=== PATIENT | female | born 1930 | race Caucasian/White ===

== ENCOUNTER 2019-02-01 11:41 | Observation (INO) ==
[2019-02-01] MEDS ORDERED: BENADRYL PO ONE (13:30)
[2019-02-01] MEDS ORDERED: TYLENOL PO ONE (13:30)
[2019-02-01] MEDS ORDERED: GAMUNEX C IV ONE (14:00)
[2019-02-01] MEDS ORDERED: DILUENT IV ONE (14:00)
[2019-02-01] MEDS ORDERED: COZAAR PO SCH (21:00)
[2019-02-01] MEDS: LOPRESSOR PO SCH (21:28)
[2019-02-02 01:47] LABS: URINE SOURCE CLEAN CATCH
[2019-02-02 01:55] LABS: BILIRUBIN URINE NEGATIVE (NEGATIVE); BLOOD URINE NEGATIVE (NEGATIVE); COLOR STRAW; GLUCOSE URINE NEGATIVE (NEGATIVE); KETONE URINE NEGATIVE (NEGATIVE); LEUKOCYTES URINE NEGATIVE (NEGATIVE); NITRITE URINE NEGATIVE (NEGATIVE); PROTEIN URINE NEGATIVE (NEGATIVE); SP GRAVITY URINE 1.009; TURBIDITY URINE CLEAR (CLEAR); UROBILINOGEN URINE NORMAL (NORMAL)
[2019-02-02 01:56] LABS: UR EPITHELIAL CELLS <10 /HPF (<10); URINE BACTERIA NEGATIVE /HPF; URINE RBC <10 /HPF (<10); URINE WBC <10 /HPF (<10)
[2019-02-02 06:52] LABS: BASO# 0.01 X1000 (0.0-0.2); BASO% 0.1 % (0.0-0.8); HEMATOCRIT 31.6 % (37.0-47.0); HEMOGLOBIN 10.6 g/dL (12.0-16.0); IMM GRAN# 0.04 X1000 (0.0-0.04); IMM GRAN% 0.6 % (0.0-0.5); LYMPH# 1.08 X1000 (1.2-3.4); LYMPH% 14.9 % (20.5-51.1); MCH 30.4 PG (27-31); MCHC 33.5 g/dL (33-37); MCV 90.5 FL (81-99); MONO# 0.73 X1000 (0.11-0.59); MONO% 10.1 % (1.7-9.3); MPV 12.9 FL (7.4-10.4); NEUT# 5.37 X1000 (1.4-6.5); NEUT% 74.3 % (42.2-75.2); PLT 31 X1000 (130-400); RBC 3.49 XMIL (4.2-5.4); RDW 13.9 % (11.5-14.5); WBC 7.23 X1000 (4.8-10.8)
[2019-02-02 07:47] LABS: PLT 25 X1000 (130-400)
[2019-02-02] MEDS: LOPRESSOR PO SCH (08:41)
[2019-02-02 08:47] VITALS: BP 148/57
[2019-02-02] MEDS ORDERED: PRILOSEC PO SCH (09:00)
[2019-02-02] MEDS ORDERED: FOLTX PO SCH (09:00)
[2019-02-02] MEDS ORDERED: AMARYL PO SCH (09:00)
[2019-02-02] MEDS ORDERED: ADALAT CC PO SCH (09:00)
[2019-02-02] MEDS ORDERED: SYNTHROID PO SCH (09:00)
[2019-02-02] MEDS ORDERED: EVISTA PO SCH (09:00)
[2019-02-02 11:14] LABS: BASO# 0.01 X1000 (0.0-0.2); BASO% 0.1 % (0.0-0.8); EOS# 0.01 X1000 (0.0-0.7); EOS% 0.1 % (0.0-10.0); HEMATOCRIT 32.5 % (37.0-47.0); HEMOGLOBIN 10.7 g/dL (12.0-16.0); IMM GRAN# 0.03 X1000 (0.0-0.04); IMM GRAN% 0.4 % (0.0-0.5); LYMPH# 1.88 X1000 (1.2-3.4); LYMPH% 22.1 % (20.5-51.1); MCH 30.1 PG (27-31); MCHC 32.9 g/dL (33-37); MCV 91.3 FL (81-99); MONO# 0.75 X1000 (0.11-0.59); MONO% 8.8 % (1.7-9.3); NEUT# 5.81 X1000 (1.4-6.5); NEUT% 68.5 % (42.2-75.2); PLT 20 X1000 (130-400); RBC 3.56 XMIL (4.2-5.4); WBC 8.49 X1000 (4.8-10.8)
== END 2019-02-02 14:15 | disposition home or self-care (01) ==
LOC: DIRADM → 3N 11:41
PROVIDERS: ADMIT Internal Medicine Hematology & Oncology; ATTEND Internal Medicine Hematology & Oncology

== ENCOUNTER 2019-02-05 10:05 | Observation (INO) ==
[2019-02-05] MEDS ORDERED: BENADRYL PO ONE ×2 (11:00→16:00)
[2019-02-05] MEDS ORDERED: TYLENOL PO ONE ×2 (11:00→16:00)
[2019-02-05] MEDS: GAMUNEX C IV ONE ×2 (15:53→15:54)
[2019-02-05] MEDS: DILUENT IV ONE ×2 (15:53→15:54)
[2019-02-05 18:27] LABS: INR 2.02; PROTIME 23.3 Seconds (11.0-16.0)
[2019-02-05] MEDS ORDERED: COUMADIN PO SCH (21:00)
[2019-02-05] MEDS ORDERED: COZAAR PO SCH (21:00)
[2019-02-05] MEDS: LOPRESSOR PO SCH (22:10)
[2019-02-06 02:18] LABS: URINE SOURCE CLEAN CATCH
[2019-02-06 02:25] LABS: BILIRUBIN URINE NEGATIVE (NEGATIVE); BLOOD URINE NEGATIVE (NEGATIVE); COLOR STRAW; GLUCOSE URINE NEGATIVE (NEGATIVE); KETONE URINE NEGATIVE (NEGATIVE); LEUKOCYTES URINE NEGATIVE (NEGATIVE); NITRITE URINE NEGATIVE (NEGATIVE); PROTEIN URINE NEGATIVE (NEGATIVE); SP GRAVITY URINE 1.013; TURBIDITY URINE CLEAR (CLEAR); UROBILINOGEN URINE NORMAL (NORMAL)
[2019-02-06 02:27] LABS: UR EPITHELIAL CELLS <10 /HPF (<10); URINE BACTERIA NEGATIVE /HPF; URINE RBC <10 /HPF (<10); URINE WBC <10 /HPF (<10)
[2019-02-06 08:18] VITALS: BP 149/56
[2019-02-06] MEDS ORDERED: SYNTHROID PO SCH (09:00)
[2019-02-06] MEDS ORDERED: PREVACID SOLUTAB PO SCH (09:00)
[2019-02-06] MEDS ORDERED: VICON-C PO SCH (09:00)
[2019-02-06] MEDS ORDERED: EVISTA PO SCH (09:00)
[2019-02-06] MEDS ORDERED: AMARYL PO SCH (09:00)
[2019-02-06] MEDS ORDERED: ADALAT CC PO SCH (09:00)
[2019-02-06] MEDS: LOPRESSOR PO SCH (09:40)
[2019-02-06 11:10] LABS: BASO# 0.01 X1000 (0.0-0.2); BASO% 0.1 % (0.0-0.8); EOS# 0.49 X1000 (0.0-0.7); EOS% 4.3 % (0.0-10.0); HEMATOCRIT 35.1 % (37.0-47.0); HEMOGLOBIN 11.7 g/dL (12.0-16.0); IMM GRAN# 0.12 X1000 (0.0-0.04); LYMPH# 2.45 X1000 (1.2-3.4); LYMPH% 21.3 % (20.5-51.1); MCH 30.5 PG (27-31); MCHC 33.3 g/dL (33-37); MCV 91.4 FL (81-99); MONO# 0.83 X1000 (0.11-0.59); MONO% 7.2 % (1.7-9.3); NEUT% 66.1 % (42.2-75.2); PLT 9 X1000 (130-400); RBC 3.84 XMIL (4.2-5.4); RDW 14.7 % (11.5-14.5)
[2019-02-06 12:19] LABS: BANDS 2 % (0-1); EOS 1 % (1-10); LYMPHS 22 % (21-51); MONO 5 % (1-9); SEGS 70 % (42-75)
[2019-02-06 12:25] LABS: LARGE PLATELETS 1+
== END 2019-02-06 13:20 | disposition home health service (06) ==
LOC: INF 10:05 → EDIPHOLD 10:05 → 1N 13:22
PROVIDERS: ADMIT Internal Medicine Hematology & Oncology; ATTEND Internal Medicine Hematology & Oncology

== ENCOUNTER 2019-02-17 00:18 | Observation (INO) ==
--- NOTE | 2019-02-17 01:15 | PROVIDER DOCUMENTATION ---
HPI-General Adult - General Chief Complaint: Extremity Pain Stated Complaint: RIGHT HIP PAIN Time Seen by Provider: 02/17/19 00:40 Source: patient, family Allergies/Adverse Reactions: Patient Allergies Allergy/AdvReac Type Severity Reaction Status Date / Time tetanus and diphtheria Allergy rash, site Verified 03/09/18 11:27 toxoids swelling, redness Home Medications: Home Medication List Medication Instructions Recorded Confirmed Last Taken Type Glimepiride 1 mg PO QAM 01/08/16 02/05/19 02/05/19 07:00 History Lansoprazole 30 mg PO QAM 01/08/16 02/05/19 02/05/19 07:00 History Levothyroxine [Synthroid] 125 microgm PO QAM 01/08/16 02/05/19 02/05/19 07:00 History Losartan Potassium 100 mg PO QHS 01/08/16 02/05/19 02/05/19 07:00 History Metoprolol Tartrate 100 mg PO BID 01/08/16 02/05/19 02/05/19 07:00 History Raloxifene [Evista] 60 mg PO QAM 01/08/16 02/05/19 02/05/19 07:00 History Nifedical Xl 30 mg PO QAM 04/05/16 02/05/19 02/05/19 07:00 History Warfarin Sodium 7 mg PO QPM 04/05/16 02/05/19 02/04/19 19:00 History Cyanocobalamin/Folic AC/Vit B6 1 mg PO DAILY 02/01/19 02/05/19 02/05/19 07:00 History [Folbee Tablet] - History of Present Illness -Gen Adult Nature of Presenting Problems: 89 YO F pmh for DM, recurrent DVT on coumadin who lives alone with c/o fall today while trying to get in bed. Pt state she had weakness in her right leg while trying to swing it onto the bed, she then lost her balance and fell, landing on her right hip. She denies hitting her head, LOC. She has generalized pain in LE b/l. She denies fever, abdominal pain, head pain, neck pain, n/v. Location of Pain/Injury: reports: pelvis (right hip), lower extremity (b/l) Pain Radiation: reports: no radiation Quality of Pain: reports: aching, fullness, throbbing Timing: reports: still present Context/Activities at Onset: reports: light activity Modifying Factors: improves with: nothing Associated Symptoms: reports: weakness, trouble walking. denies: back/neck pain, chest pain, dizziness, fatigue, fever/chills, shortness of breath, syncope, vomiting Similar Symptoms Previously?: No Recently seen or treated by another doctor?: No - Diabetes Related Context Context: denies: change in mental status Review of Systems - Adult - REVIEW OF SYSTEMS - ADULT Constitutional: denies: chills, fever Eyes: reports: no symptoms reported Ears, Nose, Mouth & Throat: reports: no symptoms reported Cardiovascular: reports: edema. denies: chest pain, palpitations, syncope Respiratory: denies: cough, shortness of breath, wheezing Gastrointestinal: denies: abdominal pain, nausea, poor appetite, vomiting Musculoskeletal: reports: see HPI Integumentary: reports: other (easy bruising) Neurological: reports: numbness. denies: dizziness/vertigo, headache/migraines, syncope Past History - Adult - PAST MEDICAL HISTORY-ADULT Review of Records: reports: Old Records Reviewed, Nursing Assessment Review, Medications Reviewed, Social history reviewed & non-contributory. Major Childhood Illnesses: reports: denies history Cardiovascular: reports: HTN Respiratory: reports: denies history Gastrointestinal: reports: GERD Obstetrical/Gynecological: reports: denies history Genitourinary: reports: denies history Musculoskeletal: reports: denies history Neurological: reports: other (neuropathy) Endocrine/Immune: reports: Diabetes, thyroid disorder Other Conditions: reports: denies history - PRIOR SURGERIES/PROCEDURES Surgical/Procedure History: reports: tonsillectomy, joint replacement (total hip replacement), breast (bx), other (thyroidectomy/ D&C) - IMMUNIZATION STATUS Childhood Immunizations: See Nurse Assessment Flu Vaccine: See Nurse Assessment - FAMILY HISTORY Family History: reviewed, not pertinent - SOCIAL HISTORY Smoking: denies Substance Use: denies Living Situation: alone Physical Exam-General - PHYSICAL EXAM-ADULT Initial Vital Signs Reviewed: Yes - CONSTITUTIONAL General Appearance: mild distress (from pain) - EYES Eyes: PERRL/EOMI, pink conjunctivae - HEAD, EARS, NOSE, MOUTH & THROAT HENMT: normocephalic/atraumatic, moist mucous membranes - NECK Neck: non-tender, full range of motion, supple, normal inspection - RESPIRATORY Respiratory: chest non-tender, lungs clear, normal breath sounds, no respiratory distress - CARDIOVASCULAR Cardiovascular: normal peripheral pulses, regular rate, rhythm. negative: no edema - GASTROINTESTINAL (ABDOMEN) Abdominal Exam: normal bowel sounds, non tender - MUSCULOSKELETAL Back Exam: normal inspection, no CVA tenderness Extremity: pedal edema, other (pain with tenderness to palpation of LE b/l, discoloration of RLE, +2 edema, good peripheral perfusion) - SKIN Integumentary: ecchymosis. negative: normal color - NEUROLOGIC Neurologic: grossly normal, other (pt not wanting to move right LE 2/2 to pain, but able to move it, no motor deficits or focal weakness, no pronator drift) - PSYCHIATRIC Psych/Mental Status: normal mood/affect, normal thought content, normal thought process Progress - PLAN OF CARE/RESULTS Progress/Plan/Lab Results: Vital Signs - 8 hr 02/17/19 00:40 Pulse Rate 56 L Respiratory Rate 20 Blood Pressure 128/54 O2 Sat by Pulse Oximetry 98 Orders Category Date Time Status CT HEAD W/O CONTRAST [CT] Stat Exams 02/17/19 00:[address] HEAD/C-SPINE W/O CONTRAST [CT] Stat Exams 02/17/19 00:[address] PELVIS W/WO CONTRAST [CT] Stat Exams 02/17/19 00:57 Ordered CBC WITH ELECTRONIC DIFF [HEME] Stat Lab 02/17/19 00:57 Uncollected COMPREHENSIVE METABOLIC PANEL [CHEM] Stat Lab 02/17/19 00:57 Uncollected PROTIME WITH INR [COAG] Stat Lab 02/17/19 00:57 Ordered PTT [COAG] Stat Lab 02/17/19 00:57 Ordered pro-bnp [PRO B-NATRIURETIC PEPTIDE] Stat Lab 02/17/19 00:59 Uncollected Patient signed out to me from Dr Barlow pending CT scan. CT showing nothing acute. Upon evaluating patient she states that she has been uanble to ambulate well. She has been falling frequently at home. Daughters state that they have been trying to get her into rehab but they told them they are unable to get her placed outpatient. I spoke to Dr Yoder, cotton stomper for hospitalist and explained their situation and concerns. He accepted patient for admission. Further orders to be placed by their team. Result Diagrams: 02/17/19 01:28 09/01/19 01:28 - CHANGE OF SHIFT REPORT (ED Provider) 1 Report Given and Care Transferred to:: Transfered to Dr. Howard Time of Transfer: 02:53 Items Pending: CT/MRI Results Departure - Departure Date of Disposition Decision: 02/17/19 Time of Disposition Decision: 03:55 DIAGNOSIS: Thrombocytopenia, Edema, Lower extremity pain, Right hip pain, Unable to ambulate, Frequent falls Disposition: ADMITTED INPATIENT 09 Certified Medical Emergency: Emergent Condition: Stable Referrals and Follow-Ups: Geovani Longoria [Primary Care Provider] - - Critical Care Note This patient required my direct & personal management of CC.: No Attestation - Physician/ LES Attestation The physician spent face to face time with patient:: Yes Advanced Practice Provider documentation review:: Supervising physician onsite and consulted in the evaluation and care of this patient. The physician did have a face to face encounter with the patient.
[2019-02-17 01:56] LABS: HEMATOCRIT 35.2 % (37.0-47.0); IMM GRAN# 0.07 X1000 (0.0-0.04); IMM GRAN% 0.8 % (0.0-0.5); LYMPH# 0.24 X1000 (1.2-3.4); LYMPH% 2.7 % (20.5-51.1); MCH 30.5 PG (27-31); MCHC 34.1 g/dL (33-37); MCV 89.3 FL (81-99); MONO# 0.42 X1000 (0.11-0.59); MONO% 4.7 % (1.7-9.3); MPV 13.7 FL (7.4-10.4); NEUT# 8.15 X1000 (1.4-6.5); NEUT% 91.8 % (42.2-75.2); PLT 40 X1000 (130-400); RBC 3.94 XMIL (4.2-5.4); RDW 14.8 % (11.5-14.5); WBC 8.88 X1000 (4.8-10.8)
[2019-02-17 02:03] LABS: INR 2.6; PROTIME 28.5 Seconds (11.0-16.0)
[2019-02-17 02:04] LABS: PTT 31.2 Seconds (22.3-41.8)
[2019-02-17 02:14] LABS: AGAP 13; ALB/GLOB RATIO 1.1; ALBUMIN 3.4 g/dL (3.5-5.0); ALKALINE PHOSPHATASE 58 U/L (32-104); BUN 44 mg/dL (8-22); CALCIUM 8.6 mg/dL (8.8-10.2); CHLORIDE 98 mmol/L (98-107); COSMO 286; CREATININE 0.6 mg/dL (0.5-0.9); ESTIMATED GFR > 60; GLUCOSE 248 mg/dL (70-104); GOT 26 U/L (10-30); GPT 27 U/L (10-36); POTASSIUM 4.7 mmol/L (3.5-5.1); SODIUM 133 mmol/L (136-145); TCO2 22 mmol/L (25-35); TOTAL BILIRUBIN 0.41 mg/dL (0.20-1.00); TOTAL PROTEIN 6.5 g/dL (6.3-8.3)
[2019-02-17 03:55] LABS: BILIRUBIN URINE NEGATIVE (NEGATIVE); BLOOD URINE SMALL (NEGATIVE); COLOR YELLOW; GLUCOSE URINE 100 mg/dL (NEGATIVE); KETONE URINE NEGATIVE (NEGATIVE); LEUKOCYTES URINE LARGE (NEGATIVE); NITRITE URINE NEGATIVE (NEGATIVE); PH URINE 5.5; PROTEIN URINE NEGATIVE (NEGATIVE); SP GRAVITY URINE 1.018; TURBIDITY URINE HAZY (CLEAR); URINE SOURCE CLEAN CATCH; UROBILINOGEN URINE NORMAL (NORMAL)
[2019-02-17 03:56] LABS: UR EPITHELIAL CELLS <10 /HPF (<10); URINE BACTERIA 4+ /HPF; URINE RBC TNTC /HPF (<10); URINE WBC 20-40 /HPF (<10)
--- NOTE | 2019-02-17 05:43 | HISTORY AND PHYSICAL ---
PRIMARY CARE PHYSICIAN: Dr. Geovani Longoria. CHIEF COMPLAINT: Falls, weakness, not feeling well. HISTORY OF PRESENTING ILLNESS: An 89-year-old female with a history of thrombocytopenia, DVT, PE, diabetes mellitus type 2, and hypertension, who had presented to the emergency department with complaint of falls and weakness. Patient states that she was unable to ambulate and she felt very weak. She was evaluated in the emergency department, and due to her presenting symptoms, it was thought that she would require admission for further management. At the time of my examination, patient denied any headache, fever, chills, chest pain, shortness of breath, any weight changes, but complained of weakness and falling. PAST MEDICAL HISTORY: Includes thrombocytopenia, diabetes mellitus type 2, hypertension, DVT, PE, does not want anticoagulation, on a palliative measures. PAST SURGICAL HISTORY: Right hip surgery, thyroidectomy, left breast cyst removal. ALLERGIES: No known drug allergies. CURRENT MEDICATIONS: Include glimepiride 1 mg p.o. q.a.m., lisinopril 30 mg p.o. q.a.m., levothyroxine 125 mcg p.o. q.a.m., losartan 100 mg at bedtime, metoprolol 100 mg p.o. b.i.d., Evista 60 mg p.o. q.a.m. SOCIAL HISTORY: She denies any history of smoking, alcohol, or illicit drug use. FAMILY HISTORY: No history of coronary disease. REVIEW OF SYSTEMS: Fourteen point review of systems is as in HPI. Other systems negative. PHYSICAL EXAMINATION: GENERAL: Cooperative, friendly female. She is resting more comfortably now. VITAL SIGNS: Pulse 56, respirations 20, blood pressure 128/54. HEENT: Atraumatic, normocephalic. Extraocular movements intact. PERRLA. NECK: No masses. CHEST: Clear to auscultation. CARDIOVASCULAR: Regular rate and rhythm. ABDOMEN: Soft. Positive bowel sounds. EXTREMITIES: No edema. NEUROLOGIC: She is awake, alert, oriented x2. GENITOURINARY: No bladder distention. SKIN: Warm. LABORATORIES AND STUDIES: WBCs 8.88, hemoglobin 12.1, hematocrit 35.2, platelets 40,000. Sodium 133, potassium 4.7, chloride 98, CO2 of 22, BUN is 44, creatinine 0.6. Glucose 248. UA is nitrite negative. There is some large leukocytes and +4 bacteria. ASSESSMENT: This is an 89-year-old, elderly female with a history of thrombocytopenia, diabetes mellitus type 2, hypertension, DVT, PE, who had presented to emergency department with complaint of recurrent falls, weakness. She was evaluated in the emergency department, and due to her presenting symptoms, we will place in for observation for further evaluation and management. 1. Status post recurrent falls. 2. Generalized weakness. 3. Thrombocytopenia. 4. Diabetes mellitus type 2. 5. Hypertension. 6. Possible urinary tract infection. PLAN: 1. We will admit patient to medical floor with telemetry. 2. We will check orthostatic blood pressure and pulse. 3. We will put patient on fall precautions. 4. We will consult Oncology regarding her thrombocytopenia. 5. Monitor blood glucose and put patient on sliding scale insulin regimen. 6. We will monitor blood pressure. Resume antihypertensive agent. 7. We will check urine cultures. Start patient on empiric antibiotics. 8. Put patient on DVT prophylaxis with SCDs. 9. We will continue to follow and reassess, make further recommendation based on patient's clinical course. cc: Carlin Yoder MD
[2019-02-17] MEDS ORDERED: ZOFRAN IV PRN (05:59)
[2019-02-17] MEDS: NS 1,000 ML IV SCH ×2 (06:26→18:49)
[2019-02-17] MEDS: HUMULIN R SUBQ SCH ×4 (07:14→21:57)
--- NOTE | 2019-02-17 10:00 | Diag Imaging Result Doc PS360 ---
EXAM: CT HEAD/C-SPINE W/O CONTRAST INDICATION: fall TECHNIQUE: This exam was performed using automated exposure control, adjustment of mA or kV according to patient size, and/or use of iterative reconstruction technique. COMPARISON: None. FINDINGS: Head: There is mild age-appropriate diffuse brain atrophy and suggestion of minimal white matter microangiopathy. There is no definite acute infarct given the limited sensitivity of CT versus MRI. There is no discrete intracranial mass, mass effect, or intracranial hemorrhage. The surrounding soft tissues are essentially unremarkable. The calvaria is intact. C-spine: There is advanced multilevel degenerative disc disease with loss of disc space height and marginal osteophyte formation at virtually every level. There is facet arthropathy at a few levels as well. The facets are fused at C2-3. Degenerative changes are causing varying degrees of moderate to severe neuroforaminal stenosis and central canal narrowing throughout the cervical spine. Otherwise, there is no discrete fracture, acute subluxation, or intrinsic osseous lesion. There is an incidental lipoma involving the musculature of the neck posteriorly on the left. Surrounding soft tissues are essentially unremarkable, otherwise. IMPRESSION: 1.Mild chronic changes as described but no evidence of acute intracranial pathology. 2.Advanced multilevel degenerative arthropathy but no evidence of fracture or other definite acute C-spine injury. Electronically signed by Liborio Arias 02/17/2019 9:57 AM
--- NOTE | 2019-02-17 10:07 | Diag Imaging Result Doc PS360 ---
EXAM: CT PELVIS W/O CONTRAST INDICATION: right hip pain TECHNIQUE: This exam was performed using automated exposure control, adjustment of mA or kV according to patient size, and/or use of iterative reconstruction technique. COMPARISON: None. FINDINGS: There has been a prior right hip arthroplasty. There is metallic beam hardening artifact related to the arthroplasty hardware. The hardware is in the expected position. There is extensive degenerative arthropathy involving the lower lumbar spine. There is no evidence of fracture involving the sacrum, pelvis, or hips. Review of the intrapelvic structures reveals a 6 cm cyst on the right. It is likely ovarian. There is uncomplicated diverticulosis coli. The intrapelvic structures are essentially unremarkable, otherwise. Surrounding soft tissues are unremarkable. IMPRESSION: 1.No evidence of acute fracture involving the sacrum, pelvis, or hips. 2.Incidental 6 cm right pelvic cystic lesion that is probably ovarian. Nonemergent ultrasound follow-up is suggested given the patient's age. Electronically signed by Liborio Arias 02/17/2019 10:04 AM
[2019-02-17] MEDS: AMARYL PO SCH (10:47)
[2019-02-17] MEDS: SYNTHROID PO SCH (10:47)
[2019-02-17] MEDS: LOPRESSOR PO SCH ×2 (10:48→20:39)
[2019-02-17] MEDS: NEPHRO-VITE PO SCH (10:48)
[2019-02-17] MEDS: EVISTA PO SCH (10:54)
--- NOTE | 2019-02-17 17:43 | HEMO/ONC CONSULTATION ---
DATE: 02/17/2019 The patient's initial consultation at the request of Dr. Ramirez. REASON FOR CONSULTATION: Thrombocytopenia. HISTORY OF PRESENT ILLNESS: On chart review, Ms. Srivastava was admitted earlier in January with notable thrombocytopenia that was new. At this time, her platelet count is 40,000, with an elevated mean platelet of 13.7, consistent with adequate marrow function. Her coags are mildly elevated with a PT of 28.5 and an INR of 2.6. RECOMMENDATIONS: I have recommended supportive care, transfusion if bleeding, to keep platelet count greater than 50,000. I will check a DIC panel to rule out DIC. We will follow along and leave further recommendations as indicated. cc: Ara Calzada MD
[2019-02-17] MEDS: PRILOSEC PO SCH (20:39)
[2019-02-17] MEDS: COZAAR PO SCH (20:39)
[2019-02-18] MEDS: NS 1,000 ML IV SCH (05:45)
[2019-02-18 07:06] LABS: INR 2.5; PROTIME 27.7 Seconds (11.0-16.0)
[2019-02-18] MEDS: HUMULIN R SUBQ SCH ×4 (07:11→21:00)
[2019-02-18 07:14] LABS: AGAP 10; BUN 28 mg/dL (8-22); CALCIUM 7.7 mg/dL (8.8-10.2); CHLORIDE 103 mmol/L (98-107); COSMO 271; CREATININE 0.7 mg/dL (0.5-0.9); ESTIMATED GFR > 60; GLUCOSE 108 mg/dL (70-104); POTASSIUM 3.9 mmol/L (3.5-5.1); SODIUM 132 mmol/L (136-145); TCO2 19 mmol/L (25-35)
[2019-02-18 07:18] LABS: BASO# 0.01 X1000 (0.0-0.2); BASO% 0.1 % (0.0-0.8); EOS# 0.21 X1000 (0.0-0.7); EOS% 1.9 % (0.0-10.0); HEMATOCRIT 33.6 % (37.0-47.0); HEMOGLOBIN 11.4 g/dL (12.0-16.0); IMM GRAN# 0.11 X1000 (0.0-0.04); LYMPH% 13.8 % (20.5-51.1); MCH 31.6 PG (27-31); MCHC 33.9 g/dL (33-37); MCV 93.1 FL (81-99); MONO# 0.53 X1000 (0.11-0.59); MONO% 4.9 % (1.7-9.3); NEUT# 8.52 X1000 (1.4-6.5); NEUT% 78.3 % (42.2-75.2); PLT 46 X1000 (130-400); RBC 3.61 XMIL (4.2-5.4); RDW 15.4 % (11.5-14.5); WBC 10.88 X1000 (4.8-10.8)
[2019-02-18 08:03] LABS: LARGE PLATELETS 1+; LYMPHS 12 % (21-51); MONO 2 % (1-9); SEGS 86 % (42-75)
[2019-02-18] MEDS: SYNTHROID PO SCH (10:53)
[2019-02-18] MEDS: NEPHRO-VITE PO SCH (10:53)
[2019-02-18] MEDS: LOPRESSOR PO SCH ×2 (10:53→21:30)
[2019-02-18] MEDS: AMARYL PO SCH (10:53)
[2019-02-18] MEDS: ADALAT CC PO SCH (10:53)
[2019-02-18] MEDS: EVISTA PO SCH (10:53)
--- NOTE | 2019-02-18 12:47 | PROGRESS NOTE ---
DATE: 02/18/2019 SUBJECTIVE: The patient seems to be doing better today. She does have weakness and mostly pain on her right lower extremity, which is chronic. She does have a urinary tract infection and it looks like she started having symptoms today, we have a positive culture that showed gram-negative rods. I will put this patient on ceftriaxone. OBJECTIVE: Vital Signs: Temperature 98.5 degrees, pulse 58, respiratory rate 18, blood pressure 121/49. Oxygen saturation 95% on room air. HEENT: Head normocephalic. No trauma. PERRLA. Neck: Supple. No JVD. No masses. Central trachea. Chest: Clear to auscultation. No wheezing. No rales. Abdomen: Soft, nontender, nondistended. No hepatosplenomegaly. Some discomfort to palpation at the level of the suprapubic area. Extremities: No edema. No clubbing. No cyanosis. Neurological: The patient is alert. She is oriented. She is following commands. LABORATORY DATA: WBC 10.8, hemoglobin 11.4, hematocrit 33.6, platelets 46,000. INR 2.5. Sodium 132, potassium 3.9, chloride 103, bicarbonate 19, BUN 28, creatinine 0.7 glucose 108, calcium 7.7. ASSESSMENT AND PLAN: 1. Generalized weakness with recurrent falls, it looks like this is chronic. She does have generalized weakness. I have requested physical therapy to evaluate this patient on top of that. She does have a urinary tract infection with gram-negative rods that will be treated, probably this patient will need to go to a rehab center. 2. Gram-negative willem urinary tract infection. I have placed this patient on ceftriaxone. 3. Thrombocytopenia, which is chronic. As per the daughter, she has been transfused before. Hematology/oncology on board. 4. Type 2 diabetes stable. Continue with same management. 5. Hypertension stable. We will monitor for now. 6. Gastroesophageal reflux disease. She is on omeprazole. 7. Hypothyroidism. Continue with levothyroxine. 8. History pulmonary embolism and deep venous thrombosis. She has been on anticoagulation at home. She has been on warfarin which has been stopped because of the low platelet count. Hematology/oncology on board. The INR is therapeutic. cc: Perez Hitchcock MD
[2019-02-18] MEDS: ROCEPHIN 1 GM in NS 50 ML IV SCH (13:38)
[2019-02-18] MEDS ORDERED: NS 500 ML ONE (13:38)
[2019-02-18] MEDS: COZAAR PO SCH (21:00)
[2019-02-18] MEDS: PRILOSEC PO SCH (21:30)
[2019-02-19 06:04] LABS: INR 1.35; PROTIME 16.9 Seconds (11.0-16.0)
[2019-02-19 06:08] LABS: BASO# 0.01 X1000 (0.0-0.2); BASO% 0.1 % (0.0-0.8); EOS# 0.42 X1000 (0.0-0.7); EOS% 3.9 % (0.0-10.0); HEMATOCRIT 35.4 % (37.0-47.0); HEMOGLOBIN 11.7 g/dL (12.0-16.0); IMM GRAN# 0.11 X1000 (0.0-0.04); LYMPH# 1.03 X1000 (1.2-3.4); LYMPH% 9.6 % (20.5-51.1); MCH 31.5 PG (27-31); MCHC 33.1 g/dL (33-37); MCV 95.2 FL (81-99); MONO# 0.46 X1000 (0.11-0.59); MONO% 4.3 % (1.7-9.3); MPV 12.3 FL (7.4-10.4); NEUT# 8.72 X1000 (1.4-6.5); NEUT% 81.1 % (42.2-75.2); PLT 73 X1000 (130-400); RBC 3.72 XMIL (4.2-5.4); RDW 15.7 % (11.5-14.5); WBC 10.75 X1000 (4.8-10.8)
[2019-02-19 06:35] LABS: AGAP 11; BUN 27 mg/dL (8-22); CALCIUM 7.8 mg/dL (8.8-10.2); CHLORIDE 101 mmol/L (98-107); COSMO 276; CREATININE 0.6 mg/dL (0.5-0.9); ESTIMATED GFR > 60; GLUCOSE 177 mg/dL (70-104); POTASSIUM 3.6 mmol/L (3.5-5.1); SODIUM 133 mmol/L (136-145); TCO2 21 mmol/L (25-35)
[2019-02-19] MEDS: HUMULIN R SUBQ SCH ×4 (07:54→21:06)
[2019-02-19] MEDS: AMARYL PO SCH (10:21)
[2019-02-19] MEDS: EVISTA PO SCH (10:21)
[2019-02-19] MEDS: SYNTHROID PO SCH (10:21)
[2019-02-19] MEDS: ADALAT CC PO SCH (10:21)
[2019-02-19] MEDS: LOPRESSOR PO SCH ×3 (10:22→21:18)
[2019-02-19] MEDS: NEPHRO-VITE PO SCH (10:22)
--- NOTE | 2019-02-19 10:59 | Diag Imaging Result Doc PS360 ---
CHEST-1 VIEW - 02/19/2019 INDICATION: REHAB COMPARISON: 09/13/2018 FINDINGS: There is some mild mainly peripheral coarse interstitial opacity in the lung bases suggesting mild pulmonary fibrosis. There is some stable atelectasis or fibrosis at the right infrahilar region. No new infiltrates. No pneumothorax or pleural effusion. Heart size is normal. IMPRESSION: Mild pulmonary fibrosis. Right infrahilar atelectasis or scarring. No significant change from prior. Electronically signed by Geraldo Hines 02/19/2019 10:57 AM
[2019-02-19] MEDS: ROCEPHIN 1 GM in NS 50 ML IV SCH (12:50)
--- NOTE | 2019-02-19 13:37 | PROGRESS NOTE ---
DATE: 02/19/2019 SUBJECTIVE: The patient seems to be doing better. She still has severe weakness and pain mostly at the level of the lower extremities. She does have a urinary tract infection and the culture showed Escherichia coli that is pansensitive. OBJECTIVE: Vital Signs: Temperature 98.4 degrees, pulse 55, respiratory rate 12, blood pressure 117/64. Oxygen saturation 98 on room air. HEENT: Head normocephalic, no trauma. PERRLA. Neck: Supple. No JVD. No masses. Central trachea. Chest: Clear to auscultation. No wheezing. No rales. Abdomen: Soft, nontender, nondistended. No hepatosplenomegaly. Some discomfort to palpation at the level of the suprapubic area. Extremities: 2+ edema. No clubbing. No cyanosis. Neurological: The patient is alert. She is oriented. She is following commands. LABORATORY: WBC 10.7, hemoglobin 11.7, hematocrit 35.4, platelet 73,000. INR 1.3. Sodium 133, potassium 3.6, chloride 101, bicarbonate 21, BUN 27, creatinine 0.6, glucose 177, calcium 7.8. ASSESSMENT AND PLAN: 1. Generalized weakness with recurrent falls, she is still having generalized weakness. I have requested physical therapy to evaluate this patient. On top of that, she does have a urinary tract infection with Escherichia coli that is pansensitive. 2. E. coli urinary tract infection. Continue with ceftriaxone. 3. Thrombocytopenia, this is chronic. Hematology/Oncology on board. 4. Type 2 diabetes, stable. Continue with same management. 5. Hypertension, stable. 6. Gastroesophageal reflux disease. Continue with omeprazole. 7. Hypothyroidism. Continue with levothyroxine. 8. History of pulmonary embolism and DVT. She has been on anticoagulation long-term. I will restart her warfarin, hematology oncology on board. 9. Overall, this patient feels better and we are treating already her urinary tract infection. She is still having generalized weakness. The plan is to send this patient to a rehab center. cc: Perez Hitchcock MD
[2019-02-19] MEDS ORDERED: COUMADIN PO SCH ×3 (21:00)
[2019-02-19] MEDS: COZAAR PO SCH (21:06)
[2019-02-19] MEDS: PRILOSEC PO SCH (21:07)
[2019-02-20] MEDS: HUMULIN R SUBQ SCH ×4 (06:00→20:17)
[2019-02-20] MEDS: XARELTO PO SCH (06:29)
[2019-02-20 06:51] LABS: INR 1.16; PROTIME 14.9 Seconds (11.0-16.0)
[2019-02-20 07:03] LABS: AGAP 8; BUN 24 mg/dL (8-22); CALCIUM 7.7 mg/dL (8.8-10.2); CHLORIDE 101 mmol/L (98-107); COSMO 279; CREATININE 0.5 mg/dL (0.5-0.9); ESTIMATED GFR > 60; GLUCOSE 157 mg/dL (70-104); POTASSIUM 4.3 mmol/L (3.5-5.1); SODIUM 136 mmol/L (136-145); TCO2 27 mmol/L (25-35)
[2019-02-20 07:05] LABS: BASO# 0.01 X1000 (0.0-0.2); BASO% 0.1 % (0.0-0.8); EOS# 0.31 X1000 (0.0-0.7); EOS% 3.3 % (0.0-10.0); HEMATOCRIT 34.5 % (37.0-47.0); HEMOGLOBIN 11.4 g/dL (12.0-16.0); IMM GRAN# 0.17 X1000 (0.0-0.04); IMM GRAN% 1.8 % (0.0-0.5); LYMPH# 1.13 X1000 (1.2-3.4); MCH 30.6 PG (27-31); MCV 92.7 FL (81-99); MONO# 0.61 X1000 (0.11-0.59); MONO% 6.5 % (1.7-9.3); MPV 11.6 FL (7.4-10.4); NEUT# 7.16 X1000 (1.4-6.5); NEUT% 76.3 % (42.2-75.2); PLT 128 X1000 (130-400); RBC 3.72 XMIL (4.2-5.4); RDW 15.3 % (11.5-14.5); WBC 9.39 X1000 (4.8-10.8)
[2019-02-20] MEDS: EVISTA PO SCH (09:25)
[2019-02-20] MEDS: AMARYL PO SCH (09:25)
[2019-02-20] MEDS: SYNTHROID PO SCH (09:25)
[2019-02-20] MEDS: LOPRESSOR PO SCH ×2 (09:25→20:16)
[2019-02-20] MEDS: ADALAT CC PO SCH (09:25)
[2019-02-20] MEDS: NEPHRO-VITE PO SCH (09:25)
[2019-02-20] MEDS: ROCEPHIN 1 GM in NS 50 ML IV SCH (11:35)
[2019-02-20] MEDS ORDERED: TYLENOL PO ONE (12:30)
[2019-02-20] MEDS ORDERED: BENADRYL PO ONE (12:30)
[2019-02-20] MEDS ORDERED: RITUXAN IV ONE (13:00)
[2019-02-20] MEDS ORDERED: NS IV ONE (13:00)
--- NOTE | 2019-02-20 13:59 | PROGRESS NOTE ---
DATE: 02/20/2019 SUBJECTIVE: The patient is feeling much better. She has been sitting at the bedside. She will receive rituximab and also a hematology oncology department started this patient on Xarelto. OBJECTIVE: Vital Signs: Temperature 97.7 degrees, pulse 65, respiratory rate 14, blood pressure 131/40 oxygen saturation 100% on room air. HEENT: Head normocephalic no trauma PERRLA. Neck: Supple. No JVD. No masses. Central trachea. Chest: Clear to auscultation. No wheezing. No rales. Abdomen: Soft, nontender, nondistended. No hepatosplenomegaly. Extremities: 2+ extremity edema. No clubbing. No cyanosis. Neurological: The patient is alert. She is oriented. She is following commands. LABORATORY: WBC 9.3, hemoglobin 11.4, hematocrit 34.5, platelets 128,000. Sodium 136, potassium 4.3, chloride 101, bicarbonate 27, BUN 24, creatinine 0.5, glucose 157, calcium 7.7. ASSESSMENT AND PLAN: 1. Generalized weakness with recurrent falls. She is still having generalized weakness. Physical therapy on board. 2. Escherichia coli urinary tract infection, continue with ceftriaxone. 3. Thrombocytopenia. This is getting better. Hematology oncology on board. 4. Type 2 diabetes, stable. Continue with same management. 5. Hypertension, stable. 6. Gastroesophageal reflux disease. Continue with omeprazole. 7. Hypothyroidism. Continue with levothyroxine. 8. History of pulmonary embolism and deep venous thrombosis. She used to be on warfarin and now she has been switched to Xarelto. 9. Overall, this patient seems to be better. We will continue with same management for now. She will need to go to a rehab center. cc: Perez Hitchcock MD
[2019-02-20] MEDS: COZAAR PO SCH (20:16)
[2019-02-20] MEDS: PRILOSEC PO SCH (20:18)
[2019-02-21] MEDS: HUMULIN R SUBQ SCH (06:19)
[2019-02-21] MEDS: XARELTO PO SCH (06:23)
[2019-02-21 07:37] LABS: AGAP 11; BUN 21 mg/dL (8-22); CALCIUM 7.5 mg/dL (8.8-10.2); CHLORIDE 101 mmol/L (98-107); COSMO 270; CREATININE 0.6 mg/dL (0.5-0.9); ESTIMATED GFR > 60; GLUCOSE 144 mg/dL (70-104); POTASSIUM 4.8 mmol/L (3.5-5.1); SODIUM 132 mmol/L (136-145); TCO2 20 mmol/L (25-35)
[2019-02-21] MEDS ORDERED: NS 50 ML ONE (07:58)
[2019-02-21] MEDS: SYNTHROID PO SCH (08:54)
[2019-02-21] MEDS: NEPHRO-VITE PO SCH (08:54)
[2019-02-21] MEDS: EVISTA PO SCH (08:54)
[2019-02-21] MEDS: ADALAT CC PO SCH (08:54)
[2019-02-21] MEDS: AMARYL PO SCH (08:54)
[2019-02-21] MEDS: LOPRESSOR PO SCH (08:55)
--- NOTE | 2019-02-21 10:25 | DISCHARGE SUMMARY ---
ADMISSION DATE: 02/17/2019 DISCHARGE DATE: 02/21/2019 DIAGNOSES: 1. Status post recurrent falls. 2. Generalized weakness. 3. Escherichia coli urinary tract infection. 4. Thrombocytopenia. 5. Diabetes mellitus type 2, stable. 6. Hypertension, stable. 7. Gastroesophageal reflux disease. 8. Hypothyroid. 9. History of pulmonary embolism and deep venous thrombosis on chronic anticoagulation with Xarelto. 10. A 6 cm pelvic cystic lesion, probably ovarian per CT scan. That will need to be followed up with ultrasound by her primary care physician on an outpatient basis. CONSULTS: Dr. Ara Calzada in Oncology. DIAGNOSTICS: 1. CT of the head reveals mild chronic changes with no evidence of acute intracranial pathology. 2. CT of the C-spine reveals advanced multilevel degenerative arthropathy, but no evidence of fracture or other definite acute C-spine injury. 3. CT of the pelvis reveals no evidence of acute fracture involving the sacrum, pelvis or hips. Incidental 6 cm right pelvic cystic lesion that is probably ovarian with a nonemergent ultrasound follow-up suggested given the patient's age. 4. On 02/19/2019 chest x-ray revealed mild pulmonary fibrosis, right infrahilar atelectasis or scarring. No significant change compared to 09/13/2018. HOSPITAL COURSE: Ms. Srivastava presented to the emergency room with frequent falls and generalized weakness, being unable to ambulate. She was found to have an E. coli UTI for which she was initially treated with Rocephin and will be discharged on Rocephin for 5 days. She does carry a history of PE with DVT for which she was on warfarin. She has been changed over to Xarelto 10 mg daily. She does continue to complain of weakness and pain to her extremities, which is chronic. Today she states she is feeling much better. She has been sitting up in the chair more. Thankfully she is ready for discharge to rehab. DISCHARGE VITAL SIGNS: Blood pressure is 137/56, heart rate of 75, respirations 20, temperature is 97.4 degrees oral with room air saturations 97 to 100%. DISCHARGE MEDICATIONS: 1. Xarelto 10 mg p.o. daily. 2. Keflex 500 mg p.o. b.i.d. x5 days. 3. Evista 60 mg p.o. daily. 4. Nifedipine ER 30 mg p.o. q.a.m. 5. Metoprolol 100 mg p.o. b.i.d. 6. Cozaar 100 mg p.o. at bedtime. 7. Levothyroxine 125 mcg p.o. daily. 8. Prilosec 20 mg p.o. daily. 9. Amaryl 1 mg p.o. daily. 10. Nephro-Yessica 1 p.o. daily. FOLLOWUP: 1. Dr. Geovani Longoria, her primary care physician. She needs to be seen in 1 to 2 weeks after discharge from rehab. At this time it can be discussed to follow up for the pelvic cyst. Copy of DS summary was sent to Dr Longoria 2. Dr. Ara Calzada as scheduled. She is being discharged to rehab at [facility] by private vehicle in stable condition. TIME SPENT: This is a greater than 30 minute discharge. Dictated by JAYCOB Stein for Perez Hitchcock MD cc: JAYCOB Stein MD Alan Walker, MD [facility]
[2019-02-21 12:18] VITALS: BP 138/51
== END 2019-02-21 12:41 ==
LOC: SUPCPDRO → 4N 00:18 → ED 00:18 → SUATTDRO 05:28 → 3N 02-19 14:46
PROVIDERS: ATTEND Internal Medicine